=== PATIENT | male | born 1980 | race Two or more races ===

== ENCOUNTER → 2016-08-16 | Outpatient (CLI) | payer BC ==
--- NOTE | 2016-08-16 14:41 | RAD ---
CT of the abdomen without contrast, 08/16/2016: History: Intermittent abdominal pain Noncontrast scans were obtained as requested. The unopacified liver is unremarkable. No gallbladder abnormality is seen. The pancreas shows no abnormality. The spleen is of normal size. The unopacified kidneys show no abnormality. The adrenal glands are unremarkable. The abdominal aorta is of normal caliber. No abdominal adenopathy is seen. The visualized bowel loops show no abnormality. The appendix is unremarkable. No free fluid is evident in the abdomen. IMPRESSION: No significant abdominal abnormality is detected.
--- NOTE | 2016-08-16 15:51 | RAD ---
Exam performed: Carotid Doppler. Clinical indication: Uncontrolled hypertension Date of Service: 08/16/16. Comparison :None available. Technique: Real-time grayscale and Doppler evaluation of the carotid system was performed and images are obtained. Color flow and spectral analysis was observed. Findings: There is no definite plaquing or intimal thickening within both carotid bulbs extending into the internal carotid artery bilaterally. Doppler interrogation reveals normal waveforms and velocities as follows . Peak systolic velocity within the right common carotid artery measures 109 cm/sec whereas on the left measures 114 cm/sec . The peak systolic velocity within the right ICA measures 93 cm/sec whereas on the left measures 75 cm/sec. The ICA to CCA ratio on the right measures 0.9 whereas on the left measures 0.7. There is antegrade flow in both vertebral arteries. Impression: 1.No definite atheromatous plaquing or evidence of stenosis seen involving both carotid systems . Note: Stenosis calculations for CT, MR and conventional angiography are based upon determination of the distal ICA diameter in accordance with the NASCET methodology. Stenosis calculations for doppler studies are derived from validated velocity criteria which are known to correlate with NASCET methodology of determining stenosis.
--- NOTE | 2016-08-16 17:59 | CARD ---
APPROVED REPORT EXAM: Two-dimensional and M-mode echocardiogram with Doppler and color Doppler. Other Information Quality : Fair Rhythm : NSR INDICATION Dizziness and Vertigo Tachycardia 2D DIMENSIONS RVDd2.9 (2.9-3.5cm)Left Atrium(2D)3.7 (1.6-4.0cm) IVSd1.2 (0.7-1.1cm)Aortic Root(2D)2.7 (2.0-3.7cm) LVDd5.2 (3.9-5.9cm)LVOT Diameter2.4 (1.8-2.4cm) PWd1.2 (0.7-1.1cm)LVDs3.2 (2.5-4.0cm) SV91.7 mlLVEF(%)65.0 (>50%) Aortic Valve AoV Peak Padilla.120.6cm/sAoV VTI26.0cm AO Peak GR.5.8mmHgLVOT Peak Padilla.105.9cm/s AO Mean GR.4mmHgAVA (VMAX)3.87cm2 HAILEY (VTI)3.90cm2 Mitral Valve MV E Xgfgzdem672.4cm/sMV E Peak Gr.8mmHg MV DECEL [id number] A Ogljblqq37.2cm/s MV E Mean Gr.3mmHgE/A Ratio1.3 MV A [id number] Tricuspid Valve TR P. Fdajpxio265bg/sRAP EVEJRRWE7pbEc TR Peak Gr.77wiQhAHEI30lwHg Pulmonary Vein S1 Dgjucqvk14.9cm/sD2 Mxnxkqaq45.0cm/s LEFT VENTRICLE The left ventricle is normal size. There is concentric left ventricular hypertrophy. Left ventricle s ystolic function is normal. The Ejection Fraction is 65%. There is normal LV segmental wall motion. T he left ventricular diastolic function and filling is normal for age. RIGHT VENTRICLE The right ventricle is normal size. The right ventricular systolic function is normal. ATRIA The left atrium size is normal. The right atrium size is normal. The interatrial septum is intact wit h no evidence for an atrial septal defect or patent foramen ovale as noted on 2-D or Doppler imaging. AORTIC VALVE The aortic valve is normal in structure and function. The aortic valve is trileaflet. Doppler and Col or Flow revealed no significant aortic regurgitation. There is no significant aortic valvular stenosi s. MITRAL VALVE The mitral valve is normal in structure and function. There is no mitral valve stenosis. Doppler and Color Flow revealed no mitral valve regurgitation noted. TRICUSPID VALVE The tricuspid valve is not well visualized. Doppler and Color Flow revealed trace to mild tricuspid r egurgitation. The PA pressure was estimated at 25 mmHg. There is no tricuspid valve stenosis. PULMONIC VALVE The pulmonic valve is not well visualized. Doppler and Color Flow revealed no pulmonic valvular regur gitation. There is no pulmonic valvular stenosis. GREAT VESSELS The aortic root is normal in size. Normal pulmonary venous flow (Doppler). The IVC is normal in size and collapses >50% with inspiration. PERICARDIAL EFFUSION There is no evidence of significant pericardial effusion. Critical Notification Critical Value: No <Conclusion> Left ventricle systolic function is normal. The Ejection Fraction is 65%. There is concentric left ventricular hypertrophy. The left atrium size is normal. The right atrium size is normal. The aortic valve is normal in structure and function. The aortic valve is trileaflet. The mitral valve is normal in structure and function. Doppler and Color Flow revealed trace to mild tricuspid regurgitation. The PA pressure was estimated at 25 mmHg. The pulmonic valve is not well visualized. There is no evidence of significant pericardial effusion.
== END | disposition home or self-care (01) ==
LOC: CT 11:19
PROVIDERS: ATTEND Family Medicine
DX: I10 Essential (primary) hypertension (principal); R42 Dizziness and giddiness; R00.0 Tachycardia, unspecified; R10.9 Unspecified abdominal pain
CPT/HCPCS: 74150; 93306; 93880

== ENCOUNTER → 2016-08-23 | Outpatient (CLI) | payer BC | END | disposition home or self-care (01) | LOC: EKG 15:26 | PROVIDERS: ATTEND Internal Medicine Cardiovascular Disease | DX: R42 Dizziness and giddiness (principal); R00.2 Palpitations | CPT/HCPCS: 93225 ==

== ENCOUNTER → 2016-09-13 | Outpatient (CLI) | payer BC ==
[~2016-09-13] MED LIST: CONTRAST GIVEN MC PRN; IOHEXOL 240 MG/ML 50ML VIAL. PO ONE
--- NOTE | 2016-09-13 16:47 | RAD ---
CT of the abdomen and pelvis without contrast, 09/13/2016: History: Right groin pain, bulge Multidetector CT imaging was performed without IV contrast as requested. Oral contrast material was given for GI tract opacification. Comparison is made to a study from 08/16/2016. The unopacified liver is unremarkable. No gallbladder abnormality is seen. The pancreas shows no abnormality. The spleen is of normal size. The unopacified kidneys show no abnormality. The abdominal aorta is of normal caliber. No abdominal or pelvic adenopathy is seen. The bowel loops are not dilated. The appendix is visualized and is unremarkable. No free fluid or free air is evident in the abdomen or pelvis. No inguinal or ventral hernia is identified. IMPRESSION: No significant abnormality is detected. PQRS Compliance Statement: One or more of the following individualized dose reduction techniques were utilized for this examination: 1. Automated exposure control 2. Adjustment of the mA and/or kV according to patient size 3. Use of iterative reconstruction technique
== END | disposition home or self-care (01) ==
LOC: CT 14:37
PROVIDERS: ATTEND Family Medicine
DX: R10.31 Right lower quadrant pain (principal)
CPT/HCPCS: 74176

== ENCOUNTER → 2017-02-01 | Outpatient (CLI) | payer BC ==
--- NOTE | 2017-02-06 11:56 | EKG ---
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
== END | disposition home or self-care (01) ==
LOC: EKG 16:12
PROVIDERS: ATTEND Specialist
DX: R42 Dizziness and giddiness (principal); R00.2 Palpitations
CPT/HCPCS: 93225